=== PATIENT | female | born 1975 | race Caucasian/White ===

== ENCOUNTER 2018-10-15 20:54 | Emergency (ER) | payer MEDICAID ==
[~2018-10-15] VITALS: Ht 160 cm; Wt 69.9 kg
[2018-10-15 21:07] VITALS: BP 143/87
[2018-10-16 05:35] VITALS: BP 114/82
== END 2018-10-16 05:35 | disposition home or self-care (01) ==
LOC: MED 20:54
DX: D25.9 Leiomyoma of uterus, unspecified (principal); R00.2 Palpitations; Z98.51 Tubal ligation status
CPT/HCPCS: 76830; 81002; 81025; 99284; Q0092

== ENCOUNTER 2018-11-18 16:06 | Emergency (ER) | payer MEDICAID ==
[~2018-11-18] VITALS: Ht 160 cm; Wt 68.0 kg
[2018-11-18 16:10] VITALS: BP 135/78
[2018-11-18 18:56] VITALS: BP 131/78
== END 2018-11-18 18:55 | disposition home or self-care (01) ==
LOC: MED 16:06
DX: H61.21 Impacted cerumen, right ear (principal)
CPT/HCPCS: 99283